=== PATIENT | male | born 1980 | race African-American/Black ===

== ENCOUNTER 2017-08-18 10:32 | Emergency (ER) | payer OTHER ==
[2017-08-18 10:35] VITALS: TEMP 36.7; O2SAT 99; Ht 195.6 cm
[2017-08-18] MEDS ORDERED: DIPH1TAB87 PO (11:20)
[2017-08-18] MEDS ORDERED: MIRT30TA PO (11:20)
[2017-08-18] MEDS ORDERED: HYDR50CA2 PO (11:20)
--- NOTE | 2017-08-18 11:48 | DIAGNOSTIC IMAGING REPORT ---
CHEST ONE VIEW PORTABLE CLINICAL HISTORY: chest pain dyspnea COMPARISON STUDY: No previous studies for comparison. FINDINGS: The bones soft tissues and hemidiaphragms are normal. The cardiomediastinal silhouette is normal. The lungs are clear. The pulmonary vasculature is normal. IMPRESSION: Negative chest. The above report was generated using voice recognition software. It may contain grammatical, syntax or spelling errors. Electronically signed by: Mushtaq Schreiber M.D. 08/18/2017 11:47 AM Dictated Date/Time: 08/18/2017 11:47 AM
[2017-08-18 12:00] LABS: ALT/SGPT 24 U/L (12-78); BLOOD UREA NITROGEN 14 mg/dl (7-18); BUN/CREATININE RATIO 11.6 (10-20); CARBON DIOXIDE 28 mmol/L (21-32); CHLORIDE 106 mmol/L (98-107); CREATININE 1.17 mg/dl (0.60-1.40); GLUCOSE 85 mg/dl (70-99); POTASSIUM 4.7 mmol/L (3.5-5.1); SODIUM 140 mmol/L (136-145)
[2017-08-18 12:08] LABS: ALB/GLOB RATIO 1.4 (0.9-2); ALKALINE PHOSPHATASE 75 U/L (45-117); AST/SGOT 23 U/L (15-37); CKMB/CK RATIO 0.3 (0-3.0)
[2017-08-18 12:37] LABS: HEMATOCRIT 45.9 % (42-52); MEAN CELL VOLUME 92.2 fL (80-100); MEAN CORPUSCULAR HEMOGLOBIN 31.7 pg (25-34); MEAN CORPUSCULAR HGB CONC 34.4 g/dl (32-36); MEAN PLATELET VOLUME 10.1 fL (7.4-10.4); PLATELET COUNT 196 K/uL (130-400); RED BLOOD COUNT 4.98 M/uL (4.7-6.1); WHITE BLOOD COUNT 3.17 K/uL (4.8-10.8)
[2017-08-18 12:54] LABS: COMPLETE YES; EOSINOPHIL % 1.1 %; LYMPH ABS # 1.27 K/uL (1.2-3.4); NEUTROPHILS % 18.9 %; VARIANT LYM ABS # 0.81 K/uL; VARIANT LYMPHOCYTE % 25.6 %
--- NOTE | 2017-08-18 14:16 | EMERGENCY ROOM VISIT NOTE ---
History First contact with patient: 11:14 Chief Complaint: CHEST PAIN Stated Complaint: CHEST PAIN Nursing Triage Summary: patient states he started to have chest pain this morning went to medical by the time "they saw me the pain was gone" pain lasted 15 mins. denies cardiac history has no pain at this time History of Present Illness The patient is a 37 year old male who presents to the Emergency Room from [facility] with complaints of chest pain which has now resolved. The patient reports that he woke up with sharp chest pain this morning. He states this was located in the central, lower portion of the chest. He states that he walked to the medical unit, and by the time that he got there his pain was gone. They performed an EKG and told him that it was abnormal and that he may be having a heart attack and needed to go to the emergency department. The patient denies any symptoms at this time. He does report that when his pain began, it was a 7/ 10. He states there was no radiation of the pain. There is no shortness of breath. He has no cardiac history and denies any family history of cardiac disease. He denies any recent trauma or recent illnesses. He denies fevers/ chills. The patient states that he is otherwise healthy and takes no medications on a daily basis. Review of Systems A complete 10 point review of systems was reviewed with the patient with pertinent positives and negatives as per history of present illness. All else were negative. Social History Smoking Status: Current Every Day Smoker Current/Historical Medications Scheduled Hydroxyzine Pamoate (Vistaril), 50 MG PO HS Mirtazapine (Remeron), 30 MG PO HS Scheduled PRN Diphenhydramine Hcl (Benadryl Allergy), 25 MG PO HS PRN for Sleep Physical Exam Vital Signs Date Time Temp Pulse Resp B/P (MAP) Pulse Ox O2 Delivery O2 Flow Rate FiO2 08/18/17 14:26 54 18 108/63 97 08/18/17 13:30 53 08/18/17 12:51 55 18 98/68 99 Room Air 08/18/17 11:43 55 18 95/71 98 Room Air 08/18/17 10:47 58 08/18/17 10:35 36.7 57 18 106/67 99 Room Air 08/18/17 10:35 99 Room Air 08/18/17 10:35 99 Room Air Physical Exam VITALS: Vitals are noted on the nurse's note and reviewed by myself. Vital signs stable. GENERAL: This is a 37-year-old male, in no acute distress, nondiaphoretic, well- developed well-nourished. SKIN: The skin was without rashes. EARS: External auditory canals clear, tympanic membranes pearly riley without erythema or effusion bilaterally. EYES: Pupils equal round and reactive to light and accommodation. MOUTH: Mucous membranes moist. Tonsils are not enlarged. Pharynx without erythema or exudate. NECK: Supple without nuchal rigidity. No lymphadenopathy. HEART: Regular rate and rhythm without murmurs gallops or rubs. LUNGS: Clear to auscultation bilaterally without wheezes, rales or rhonchi. No retractions or accessory muscle use. MUSCULOSKELETAL: No reproducible pain to palpation of the chest. NEURO: Patient was alert and oriented to person place and time. Medical Decision & Procedures ER Provider Diagnostic Interpretation: CHEST ONE VIEW PORTABLE CLINICAL HISTORY: chest pain dyspnea COMPARISON STUDY: No previous studies for comparison. FINDINGS: The bones soft tissues and hemidiaphragms are normal. The cardiomediastinal silhouette is normal. The lungs are clear. The pulmonary vasculature is normal. IMPRESSION: Negative chest. Laboratory Results 08/18/17 10:50 Red Blood Count 4.98, Mean Corpuscular Volume 92.2, Mean Corpuscular Hemoglobin 31.7, Mean Corpuscular Hemoglobin Concent 34.4, Mean Platelet Volume 10.1 08/18/17 10:50 Test 08/18/17 10:50 08/18/17 13:20 White Blood Count 3.17 K/uL (4.8-10.8) Red Blood Count 4.98 M/uL (4.7-6.1) Hemoglobin 15.8 g/dL (14.0-18.0) Hematocrit 45.9 % (42-52) Mean Corpuscular Volume 92.2 fL (80-100) Mean Corpuscular Hemoglobin 31.7 pg (25-34) Mean Corpuscular Hemoglobin Concent 34.4 g/dl (32-36) Platelet Count 196 K/uL (130-400) Mean Platelet Volume 10.1 fL (7.4-10.4) RDW Standard Deviation 45.0 fL (36.4-46.3) RDW Coefficient of Variation 13.4 % (11.5-14.5) Neutrophils % (Manual) 18.9 % Lymphocytes % (Manual) 40.0 % Variant Lymphocytes % (manual) 25.6 % Monocytes % (Manual) 14.4 % Eosinophils % (Manual) 1.1 % Neutrophils # (Manual) 0.60 K/uL (1.4-6.5) Total Absolute Neutrophils 0.60 K/uL (1.4-6.5) Lymphocytes # (Manual) 1.27 K/uL (1.2-3.4) Absolute Variant Lymphocytes 0.81 K/uL Total Absolute Lymphocytes 2.08 K/uL (1.2-3.4) Monocytes # (Manual) 0.46 K/uL (0.11-0.59) Eosinophils # (Manual) 0.03 K/uL (0-0.5) Red Blood Cell Morphology Unremarkable Anion Gap 6.0 mmol/L (3-11) Estimated GFR () 93.1 Estimated GFR (Non- 80.3 BUN/Creatinine Ratio 11.6 (10-20) Calcium Level 9.0 mg/dl (8.5-10.1) Total Bilirubin 0.5 mg/dl (0.2-1) Aspartate Amino Transf (AST/SGOT) 23 U/L (15-37) Alanine Aminotransferase (ALT/SGPT) 24 U/L (12-78) Alkaline Phosphatase 75 U/L (45-117) Total Creatine Kinase 208 U/L (39-308) Creatine Kinase MB 0.7 ng/ml (0.5-3.6) Creatine Kinase MB Ratio 0.3 (0-3.0) Total Protein 7.6 gm/dl (6.4-8.2) Albumin 4.4 gm/dl (3.4-5.0) Globulin 3.2 gm/dl (2.5-4.0) Albumin/Globulin Ratio 1.4 (0.9-2) Bedside Troponin I < 0.030 ng/ml (0-0.045) ECG Indication: other (previous abnormal EKG) Rate (beats per minute): 55 Rhythm: sinus bradycardia Findings: ST elevation (diffuse) Comparison ECG Date: no prior available Medical Decision Differential diagnosis includes acute coronary syndrome, pulmonary embolism, pneumothorax, pericarditis, myocarditis, endocarditis, anxiety, musculoskeletal pain, GERD, costochondritis, pneumonia, among others. The patient is a 37-year-old male who presents today complaining of resolved chest pain which lasted for 5 minutes this morning. He was sent here due to an abnormal EKG. EKG was performed here and does show a small amount of ST elevation diffusely, which appears consistent with early repolarization as there is no history concerning for pericarditis. Labs were performed. Troponin was negative 2. Patient was found to be mildly leukopenic with white blood cell count 3.17 and had a low ANC of 0.60. The patient denies a history of this but states that he has not had labs drawn in several years. The patient has no chronic history no chest pain at this time. I do not feel this is an acute cardiac issue. He was referred back to his PCP for further workup. He was advised to return to the emergency Department if he would develop a return of chest pain, shortness of breath, syncope or any other new/concerning symptoms. The patient's case was reviewed with Dr. Perea, ED attending physician, who agreed with my assessment and treatment plan. Based on the patient's presentation and work up, I feel the patient is stable for outpatient treatment. The patient was educated to return to the emergency department for any worsening of their current condition or new/concerning symptoms. He will follow up with the medical unit at [facility]. Medication Reconcilliation Current Medication List: was personally reviewed by me Blood Pressure Screening Patient's blood pressure: Normal blood pressure Impression Primary Impression: Substernal chest pain Departure Information Dispostion Home / Self-Care Condition GOOD Referrals Shiv IRENE (PCP) Patient Instructions My [facility] Additional Instructions Your cardiac workup today was normal. Your white blood cell count was slightly low today. You should have this rechecked by medical. Follow up within the next 2 days with the medical unit. Return for any recurrent chest pain, shortness of breath, passing out, or any other new/concerning symptoms.
[2017-08-18 14:26] VITALS: BP 108/63; PULSE 54; O2SAT 97
== END 2017-08-18 14:21 ==
LOC: EDBD 10:32 → C.EDA 10:34
DX: R07.89 Other chest pain (principal); R94.31 Abnormal electrocardiogram [ECG] [EKG]; F17.200 Nicotine dependence, unspecified, uncomplicated